=== PATIENT | female | born 1975 | race Two or more races ===

== ENCOUNTER 2017-07-14 13:43 | Inpatient (IN) | payer BC, OTHER ==
[2017-07-14 13:49] VITALS: BMI 20.1
--- NOTE | 2017-07-14 14:01 | PDOC ---
Rapid Medical Evaluation Chief Complaint: Vaginal Bleeding Time Seen by Provider: 07/14/17 13:56 Medical Evaluation: Allergies Allergy/AdvReac Type Severity Reaction Status Date / Time No Known Allergies Allergy Verified 07/14/17 13:45 Vital Signs Temp Pulse Resp BP Pulse Ox 98.5 F 104 H 18 117/71 100 07/14/17 13:45 07/14/17 13:45 07/14/17 13:45 07/14/17 13:45 07/14/17 13:45 07/14/17 14:07 I have performed a brief in-person evaluation of this patient. The patient presents with a chief complaint of: diarrhea, blood in stool Pertinent physical exam findings: stable I have ordered the following: cbc, cmp, coags, type and screen The patient will proceed to the ED for further evaluation. 07/14/17 14:35
[2017-07-14 14:15] LABS: MCH 29.2 pg (25.7-33.7); MEAN CELL VOLUME 91.1 fl (80-96); MEAN PLT VOLUME 7.9 fl (7.5-11.1); PLATELET COUNT 238 K/MM3 (134-434); RDW 13.9 % (11.6-15.6); WHITE BLOOD COUNT 17.8 K/mm3 (4.0-10.0)
[2017-07-14 14:36] LABS: ALBUMIN 3.9 g/dl (3.4-5.0); ANION GAP 10 (8-16); CALCIUM 8.7 mg/dL (8.5-10.1); CO2 25 mmol/L (21-32)
[2017-07-14 14:42] LABS: ALK PHOS 47 U/L (45-117); BILIRUBIN,TOTAL 0.7 mg/dL (0.2-1.0); CREATININE 0.8 mg/dL (0.55-1.02); GLUCOSE,RANDOM 106 mg/dL (74-106); SGOT/AST 17 U/L (15-37); SGPT/ALT 20 U/L (12-78); TOT PROT 7.1 g/dl (6.4-8.2)
[2017-07-14 14:45] LABS: INR 1.09 (0.82-1.09); PROTHROMBIN TIME (PATIENT) 12.3 SEC (9.98-11.88)
[2017-07-14 14:48] LABS: ACTIVATED PTT 29.6 SECONDS (26.9-34.4)
--- NOTE | 2017-07-14 15:32 | PDOC ---
History of Present Illness - General Chief Complaint: Vaginal Bleeding Stated Complaint: O.R PCP SENT FOR ADMIN d&c Time Seen by Provider: 07/14/17 13:56 - History of Present Illness Initial Comments: 07/14/17 15:47 Ms. Albrecht is a 42 yo female w/ pmh of prior left leg blood clot during and eczema who presents from provider. She says that she had a miscarriage on June 18 and started bleeding Jun.25. She has been bleeding more or less since. She presented to her provider today for evaluation and was sent here with D&C scheduled for 7pm. The patient denies chest pain, shortness of breath, headache and dizziness. Denies fever, chills, nausea, vomit, diarrhea and constipation. Denies dysuria, frequency, urgency and hematuria. Allergies: NKDA Past History - Past Medical History Allergies/Adverse Reactions: Allergies Allergy/AdvReac Type Severity Reaction Status Date / Time No Known Allergies Allergy Verified 07/14/17 13:45 COPD: No - Suicide/Smoking/Psychosocial Hx Smoking History: Never smoked Information on smoking cessation initiated: No Hx Alcohol Use: No Drug/Substance Use Hx: No Substance Use Type: None Review of Systems - Review of Systems Comments:: 07/14/17 15:51 GENERAL/CONSTITUTIONAL: +Generalized weakness HEAD, EYES, EARS, NOSE AND THROAT: No change in vision. No ear pain or discharge. No sore throat. CARDIOVASCULAR: No chest pain or shortness of breath RESPIRATORY: No cough, wheezing, or hemoptysis. GASTROINTESTINAL: No nausea, vomiting, diarrhea or constipation. GENITOURINARY: No dysuria, frequency, or change in urination. MUSCULOSKELETAL: No joint or muscle swelling or pain. No neck or back pain. SKIN: No rash NEUROLOGIC: No headache, vertigo, loss of consciousness, or change in strength/ sensation. ENDOCRINE: No increased thirst. No abnormal weight change HEMATOLOGIC/LYMPHATIC: No anemia, easy bleeding, or history of blood clots. ALLERGIC/IMMUNOLOGIC: No hives or skin allergy. : Vaginal bleeding reported *Physical Exam - Vital Signs Last Vital Signs Temp Pulse Resp BP Pulse Ox 98.5 F 104 H 18 117/71 100 07/14/17 13:45 07/14/17 13:45 07/14/17 13:45 07/14/17 13:45 07/14/17 13:45 - Physical Exam Comments: 07/14/17 15:52 GENERAL: Awake, alert, and fully oriented, in no acute distress HEAD: No signs of trauma, normocephalic, atraumatic EYES: PERRLA, EOMI, sclera anicteric, conjunctiva clear ENT: Auricles normal inspection, hearing grossly normal, nares patent, oropharynx clear without exudates. Moist mucosa NECK: Normal ROM, supple, no lymphadenopathy, JVD, or masses LUNGS: No distress, speaks full sentences, clear to auscultation bilaterally HEART: Regular rate and rhythm, normal S1 and S2, no murmurs, rubs or gallops, peripheral pulses normal and equal bilaterally. ABDOMEN: Soft, nontender, normoactive bowel sounds. No guarding, no rebound. No masses EXTREMITIES: Normal inspection, Normal range of motion, no edema. No clubbing or cyanosis. NEUROLOGICAL: Cranial nerves II through XII grossly intact. Normal speech, normal gait, no focal sensorimotor deficits SKIN: Warm, Dry, normal turgor, no rashes or lesions noted. ED Treatment Course - LABORATORY CBC & Chemistry Diagram: 07/14/17 14:04 07/14/17 14:04 - ADDITIONAL ORDERS Additional order review: Laboratory Results 07/14/17 07/14/17 07/14/17 14:04 14:04 14:04 PT with INR 12.30 H INR 1.09 PTT (Actin FS) 29.6 Sodium 140 Potassium 3.8 Chloride 105 Carbon Dioxide 25 Anion Gap 10 BUN 10 Creatinine 0.8 Creat Clearance w eGFR > 60 Random Glucose 106 Calcium 8.7 Total Bilirubin 0.7 AST 17 ALT 20 Alkaline Phosphatase 47 Total Protein 7.1 Albumin 3.9 Serum , Qual Positive 07/14/17 14:04 RBC 4.05 MCV 91.1 MCHC 32.0 RDW 13.9 MPV 7.9 Neutrophils % No Result Required. Lymphocytes % No Result Required. Medical Decision Making - Medical Decision Making 07/14/17 15:52 Patient discussed with admitting who will perform D&C tonight. Vaginal exam not done as not diagnostically necessary. Patient will be admitted for planned surgery and IV ABX started. *DC/Admit/Observation/Transfer Diagnosis at time of Disposition: Vaginal bleeding - Discharge Dispostion Admit: Yes - Referrals - Patient Instructions - Post Discharge Activity
[2017-07-14] MEDS ORDERED: cefTRIAXone 1 GM/50 ML BAG (PRE-DOCKED) IVPB ONE (15:33)
[2017-07-14] MEDS ORDERED: METRONIDAZOLE 500 MG PREMIXED 500 MG/100 ML MG IVPB ONE ×2 (15:33→16:08)
[2017-07-14] MEDS ORDERED: DOXYCYCLINE INJECTION 100 MG in DEXTROSE 5%-WATER - 100 ML IVPB ONE (15:38)
[2017-07-14] MEDS ORDERED: FAMOTIDINE 20 MG/50 ML IVPB 20 MG/50 ML MG IVPB ONE ×2 (15:54→16:08)
[2017-07-14] MEDS ORDERED: ONDANSETRON 4 MG/2 ML VIAL IVPUSH ONE (15:54)
[2017-07-14] MEDS ORDERED: SODIUM CHLORIDE 1,000 ML IV ONE (16:31)
--- NOTE | 2017-07-14 16:37 | PDOC ---
Attending Attestation - Resident Resident Name: Manoj Schultz - ED Attending Attestation I have performed the following: I have examined & evaluated the patient, The case was reviewed & discussed with the resident, I agree w/resident's findings & plan, Exceptions are as noted - Medical Decision Making 07/14/17 16:35 I, Dr. Alley Luke, DO, attest that this document has been prepared under my direction and personally reviewed by me in its entirety. I further attest, that it accurately reflects all work, treatment, procedures and medical decision -making performed by me. a/p: 42yo female sent by OB for preop labs for d/c tonight -preop labs, hcg, ivf hydration, zofran, pepcid, NPO. will be going to the OR with last chalker at 7pm <Alley Luke - Last Filed: 07/14/17 16:34> - HPI HPI: 07/14/17 16:39 Patient is a 42 year old female with PMHx of left leg blood clot during who presents to the ER for vaginal bleeding. She was sent to the ER and has a D&C scheduled for 7pm tonight. She has been NPO since last night. She complains of nausea and vomiting since 11am this morning. She is having lower abdominal pelvic cramps. - Physicial Exam PE: 07/14/17 16:38 GENERAL: Awake, alert, and fully oriented, in no acute distress HEAD: No signs of trauma EYES: PERRLA, EOMI, sclera anicteric, conjunctiva clear ENT: Auricles normal inspection, hearing grossly normal, nares patent, oropharynx clear without exudates. Moist mucosa NECK: Normal ROM, supple, no lymphadenopathy, JVD, or masses LUNGS: Breath sounds equal, clear to auscultation bilaterally. No wheezes, and no crackles HEART: Regular rate and rhythm, normal S1 and S2, no murmurs, rubs or gallops ABDOMEN: Mild tenderness in left pelvic area. Residual heartburn from vomiting today. Soft,, normoactive bowel sounds. No guarding, no rebound. No masses EXTREMITIES: No lower extremity edema. Normal range of motion, no edema. No clubbing or cyanosis. No cords, erythema, or tenderness NEUROLOGICAL: Cranial nerves II through XII grossly intact. Normal speech, normal gait SKIN: Warm, Dry, normal turgor, no rashes or lesions noted. <Christy Isbell - Last Filed: 07/14/17 16:40>
[2017-07-14 18:49] LABS: METAMYELOCYTE 2 % (0-2); TOTAL CELLS COUNTED 100
[2017-07-14 18:50] LABS: PLATELET ESTIMATE ADEQUATE; TOXIC GRANULATION 1+
[2017-07-14] MEDS ORDERED: PROPOFOL 20 ML ONE ×2 (22:22)
[2017-07-14] MEDS ORDERED: MIDAZOLAM HCL 2 MG/2 ML SINGLE DOSE VIAL ONE ×2 (22:23)
[2017-07-14] MEDS ORDERED: PROMETHAZINE HCL 25 MG/1 ML VIAL IVPUSH PRN (22:55)
[2017-07-14] MEDS ORDERED: ONDANSETRON 4 MG/2 ML VIAL IVPUSH PRN ×2 (22:55→23:02)
[2017-07-14] MEDS ORDERED: oxyCODONE HCL 5 MG TABLET PO PRN (22:55)
[2017-07-14] MEDS ORDERED: LACTATED RINGERS SOLUTION 1,000 ML IV SCH (23:00)
--- NOTE | 2017-07-14 23:01 | HP ---
Admitting History and Physical - Primary Care Physician PCP: Nisreen Nelson - Admission Chief Complaint: 42yo P2 with abdominal pain, foul smeling discharge, leveling HCG, post spontaneous Ab History of Present Illness: seen 06/18/17 9.5wks by dates, HCG 19,531, empty sack on US Since all signs of SAB, dropping HCG count 13,995(06/21), 8001 (06/26) she was observed She complained on 07/05 of foul odor and was given and took course of PO Flagyl without resolution of symptoms, HCG 84 (07/12) presented to the office today 07/14 with worsening of pain and foul smelling discharge History Source: Patient Limitations to Obtaining History: No Limitations - Past Medical History Cardiovascular: Yes: Deep Vein Thrombosis (2008 during first , states had negative w/up) Reproductive: Yes: Other (Ovarian cyst) ...LMP: 04/09/17 ...: Yes (s/p Incomplete Ab) - Past Surgical History Past Surgical History: Yes: Breast Biopsy Additional Past Surgical History: nevus removal - Smoking History Smoking history: Never smoked Have you smoked in the past 12 months: No - Alcohol/Substance Use Hx Alcohol Use: No Home Medications - Allergies Allergies/Adverse Reactions: Allergies Allergy/AdvReac Type Severity Reaction Status Date / Time No Known Allergies Allergy Verified 07/14/17 13:45 - Home Medications Home Medications: Ambulatory Orders NK [No Known Home Medication] 07/14/17 Family Disease History - Family Disease History Family Disease History: Other: Mother (DVT, PE) Review of Systems - Review of Systems Constitutional: reports: No Symptoms Eyes: reports: No Symptoms HENT: reports: No Symptoms Neck: reports: No Symptoms Cardiovascular: reports: No Symptoms Respiratory: reports: No Symptoms Gastrointestinal: reports: Abdominal Pain Genitourinary: reports: Vaginal Bleeding, Other (foul copious vaginal discharge , fundal tenderness) Physical Examination Vital Signs: Vital Signs Temperature 98.2 F 07/14/17 21:58 Pulse Rate 66 07/14/17 21:58 Respiratory Rate 17 07/14/17 21:58 Blood Pressure 118/82 07/14/17 21:58 O2 Sat by Pulse Oximetry (%) 100 07/14/17 21:58 Constitutional: Yes: Well Nourished HENT: Yes: WNL Neck: Yes: WNL Cardiovascular: Yes: WNL Respiratory: Yes: WNL Gastrointestinal: Yes: WNL, Tenderness, Other (low abdominal tenderness) Renal/: Yes: Vaginal Discharge (purulent, foul odor discharge), Other (CMT, Fundal tenderness) Musculoskeletal: Yes: WNL Extremities: Yes: WNL Integumentary: Yes: WNL Neurological: Yes: WNL ...Motor Strength: WNL Psychiatric: Yes: WNL Labs: CBC, BMP 07/14/17 14:04 07/14/17 14:04 Imaging - Results Ultrasound: Image Reviewed (1.2cm endometrial stripe, irregula c/w retained products) Assessment/Plan 42 yo P2 with Incomplete Septic Ab and Endometritis Admit for D&C NPO, IVF, Start triple antibiotics: Ceftriaxone, Flagyl, Doxycycline Consent signed, patient understands risks of infection bleeding, uterine perforation and scaring
[2017-07-14] MEDS ORDERED: IBUPROFEN 800 MG/8 ML IJ IVPB PRN (23:02)
[2017-07-14] MEDS ORDERED: IBUPROFEN 600 MG TABLET (FP) PO PRN (23:02)
--- NOTE | 2017-07-14 23:02 | OP ---
Operative Note - Note: Operative Date: 07/14/17 Pre-Operative Diagnosis: 42yo with Incomplete, infected Operation: Dialation and curettage Findings: Retained POC Post-Operative Diagnosis: Same as Pre-op Surgeon: Nisreen Nelson Anesthesiologist/SHAKER OPERATOR: Jacobo Mcnamraa Anesthesia: MAC Estimated Blood Loss (mls): 0 Drains, Volume Out (mls): 50 Fluid Volume Replaced (mls): 500 Operative Report Dictated: Yes
[2017-07-14] MEDS ORDERED: CEFTRIAXONE 1 GM in DEXTROSE 5%-WATER - 50 ML IVPB SCH (23:15)
[2017-07-14] MEDS ORDERED: ELECTROLYTE-148 SOLN 1,000 ML IV SCH (23:15)
[2017-07-15] MEDS: METRONIDAZOLE 500 MG PREMIXED 500 MG/100 ML MG IVPB SCH ×5 (00:09→20:51)
[2017-07-15] MEDS: ENOXAPARIN NA (PORCINE) 30 MG/0.3 ML DISP.SYRIN SQ SCH ×3 (00:17→22:08)
[2017-07-15] MEDS: CEFTRIAXONE 1 G/50 ML PREMIX 50 ML IVPB SCH ×2 (01:14→09:17)
[2017-07-15] MEDS: DOXYCYCLINE INJECTION 100 MG in DEXTROSE 5%-WATER - 100 ML IVPB SCH ×3 (02:08→22:06)
--- NOTE | 2017-07-15 08:22 | PN ---
Progress Note, Physician Chief Complaint: Feels better, no nausea, no vomiting, pain controlled History of Present Illness: s/p D&C 07/15/17 - Current Medication List Current Medications: Active Medications Enoxaparin Sodium (Lovenox -) 30 mg SQ BID [facility] Last Admin: 07/15/17 00:17 Dose: 30 mg Lactated Ringer's (Lactated Ringers Solution) 1,000 mls @ 75 mls/hr IV ASDIR NICOLE Parenteral Electrolytes (Plasma-Lyte 148 -) 1,000 mls @ 125 mls/hr IV ASDIR NICOLE Last Admin: 07/14/17 23:15 Dose: 0 mls Metronidazole (Flagyl 500mg Premixed Ivpb -) 500 mg in 100 mls @ 100 mls/hr IVPB Q6H-IV [facility] Stop: 07/15/17 23:14 Last Admin: 07/15/17 08:11 Dose: 100 mls/hr Doxycycline Hyclate 100 mg/ (Dextrose) 100 mls @ 50 mls/hr IVPB BID [facility] Stop: 07/15/17 23:14 Last Admin: 07/15/17 02:08 Dose: 50 mls/hr CEFTRIAXONE 1 G/50 ML PREMIX (Ceftriaxone 1 Gm-D5w Bag) 50 mls @ 100 mls/hr IVPB DAILY [facility] Stop: 07/15/17 23:14 Last Admin: 07/15/17 01:14 Dose: 100 mls/hr Ibuprofen (Motrin -) 600 mg PO Q6H PRN PRN Reason: FEVER Ibuprofen (Caldolor Injection -) 800 mg IVPB Q6H PRN PRN Reason: FEVER Ondansetron HCl (Zofran Injection) 4 mg IVPUSH Q6H PRN PRN Reason: NAUSEA AND/OR VOMITING Ondansetron HCl (Zofran Injection) 4 mg IVPUSH Q6H PRN PRN Reason: NAUSEA Oxycodone HCl (Roxicodone -) 10 mg PO Q4H PRN PRN Reason: SEVERE PAIN Stop: 07/15/17 22:54 Promethazine HCl (Phenergan Injection -) 12.5 mg IVPUSH Q6H PRN PRN Reason: NAUSEA-FOR RESCUE AFTER 15 MIN - Objective Vital Signs: Vital Signs Temperature 98 F 07/15/17 08:05 Pulse Rate 58 L 07/15/17 08:05 Respiratory Rate 20 07/15/17 08:05 Blood Pressure 94/40 07/15/17 08:05 O2 Sat by Pulse Oximetry (%) 98 07/14/17 23:05 Constitutional: Yes: Well Nourished Neck: Yes: WNL Cardiovascular: Yes: WNL Respiratory: Yes: WNL Gastrointestinal: Yes: WNL, Soft, Other (mild LLQ tenderness) Genitourinary: Yes: Vaginal Bleeding (minimal) Extremities: Yes: WNL (Venodyne stockings) Neurological: Yes: WNL ...Motor Strength: WNL Psychiatric: Yes: WNL Labs: CBC, BMP 07/14/17 14:04 INR, PTT INR 1.09 (0.82-1.09) 07/14/17 14:04 Assessment/Plan 42 yo P2 s/p D&C for Septic AB doing well WBC improving still some mild abdominal symptoms will observe for 24 more hr of IV Abx than will d/c home on PO
[2017-07-15 08:43] LABS: MCH 29.3 pg (25.7-33.7); MCHC 32.4 g/dl (32.0-36.0); MEAN CELL VOLUME 90.6 fl (80-96); MEAN PLT VOLUME 8.3 fl (7.5-11.1); PLATELET COUNT 228 K/MM3 (134-434); WHITE BLOOD COUNT 14.5 K/mm3 (4.0-10.0)
--- NOTE | 2017-07-16 00:33 | OP ---
DATE OF OPERATION: 07/14/2017 PREOPERATIVE DIAGNOSIS: A 22-year-old with incomplete effective . OPERATION: Dilation and curettage. FINDINGS: Retained product of conception. POSTOPERATIVE DIAGNOSIS: Retained product of conception. SURGEON: Nisreen Nelson MD ANESTHESIOLOGIST: Jacobo Mcnamara MD ANESTHESIA: MAC. ESTIMATED BLOOD LOSS: Zero mL. URINE OUTPUT: 50 mL. Patient received 500 mL of IV fluids. DESCRIPTION OF PROCEDURE: After assuring informed consent, the patient was brought to the operating room where she was placed in the dorsal lithotomy position. Perineum and vagina were prepped with betadine and draped in the sterile fashion. A blunt-sided speculum was placed in the vagina and the vagina was previously examined and the uterus was found to be 7 cm in size with closed cervix. The cervix was articulated with a single-toothed tenaculum and gradually dilated per dilators to accommodate a 7-gauge curette. Suction curettage was performed and products of conception were suctioned and visualized. Aspirated gentle curettage with number 2 curette was performed in all 4 quadrants. Uterus was found to be empty. Suction was performed one more time. All instruments were removed from the cervix and vagina. Sponge and instrument count was correct x2. Patient was brought to the recovery room in stable condition. Christopher [id number]
[2017-07-16] MEDS: METRONIDAZOLE 500 MG PREMIXED 500 MG/100 ML MG IVPB SCH ×3 (02:46→15:03)
[2017-07-16 08:26] LABS: BASOPHIL 0.4 % (0-2.0); EOSINOPHIL 1.1 % (0-4.5); MCH 29.7 pg (25.7-33.7); MCHC 32.1 g/dl (32.0-36.0); MEAN CELL VOLUME 92.3 fl (80-96); MEAN PLT VOLUME 8.2 fl (7.5-11.1); NEUTROPHILS 57.7 % (42.8-82.8); PLATELET COUNT 197 K/MM3 (134-434); RDW 14.1 % (11.6-15.6); WHITE BLOOD COUNT 8.3 K/mm3 (4.0-10.0)
[2017-07-16 09:17] VITALS: BP 99/62; PULSE 55; TEMP 98.2
[2017-07-16] MEDS: ENOXAPARIN NA (PORCINE) 30 MG/0.3 ML DISP.SYRIN SQ SCH (09:51)
[2017-07-16] MEDS ORDERED: CEFTRIAXONE 1 G/50 ML PREMIX 50 ML IVPB ONE (10:00)
[2017-07-16] MEDS ORDERED: DOXYCYCLINE INJECTION 100 MG in DEXTROSE 5%-WATER - 100 ML IVPB SCH (10:00)
--- NOTE | 2017-07-16 15:43 | DS ---
Physical Examination Vital Signs: Vital Signs Temperature 98.2 F 07/16/17 09:16 Pulse Rate 55 L 07/16/17 09:16 Respiratory Rate 20 07/16/17 09:16 Blood Pressure 99/62 07/16/17 09:16 O2 Sat by Pulse Oximetry (%) 98 07/14/17 23:05 Labs: CBC, BMP 07/16/17 07:45 07/14/17 14:04 Discharge Summary Reason For Visit: VAGINAL BLEEDING Current Active Problems Vaginal bleeding (Acute) - Instructions - Home Medications Comprehensive Discharge Medication List: Ambulatory Orders NK [No Known Home Medication] 07/14/17
--- NOTE | 2017-07-16 15:51 | PATH ---
Surgical Pathology Report Patient Name: PALAK REHMAN [facility] [place]. Rec. #: [id number] /Age/Gender: 1975 (Age: 42) / F Account: [id number] Location: [facility] OBS/ROLL OVER PRESS OPERATOR Taken: 07/14/2017 Received: 07/15/2017 Reported: 07/16/2017 Physicians: Nisreen Nelson M.D. Specimen(s) Received PRODUCTS OF CONCEPTION AND CURETTAGE Clinical History Preoperative diagnosis: Incomplete Postoperative diagnosis: Same Final Diagnosis UTERINE CONTENTS, CURETTINGS: DEGENERATED CHORIONIC VILLI CONSISTENT WITH PRODUCTS OF CONCEPTION, ALONG WITH DECIDUA AND WEAKLY PROLIFERATIVE ENDOMETRIUM. Electronically Signed Aime Wood M.D. Gross Description Received in formalin labeled "products of conception and curettage," is a 5.5 x 4.0 x 0.4 cm aggregate of lewis brown soft tissue fragments. No definite villous tissue or somatic tissue is identified. Electronics Supervisor sections are submitted in 3 cassettes. /07/15/[address] [facility]07/15/2017
== END 2017-07-16 17:00 | disposition home or self-care (01) | DRG 770 ==
LOC: JER 13:43 → JASUSAT 15:55 → J3W 22:59
PROVIDERS: ADMIT Obstetrics & Gynecology; ATTEND Obstetrics & Gynecology
PROC: 10D17ZZ Extraction of Products of Conception, Retained, Via Natural or Artificial Opening (ICD-10-PCS; principal; 2017-07-14 19:00)
DX: O03.37 Sepsis following incomplete spontaneous abortion (principal); A41.9 Sepsis, unspecified organism; Z3A.09 9 weeks gestation of pregnancy
CPT/HCPCS: 36415; 80053; 84702; 84703; 85025; 85027; 85610; 85730; 86850; 86900; 86901; 88305-TC; 94010; 94760; 99282-25

== ENCOUNTER 2021-11-09 19:10 | Emergency (ER) | payer BC, OTHER ==
[2021-11-09 19:15] VITALS: BP 151/84; PULSE 70; TEMP 97.8; BMI 20.1
[2021-11-09] MEDS ORDERED: IBUPROFEN 600 MG TABLET (FP) PO ONE ×2 (20:11→20:17)
[2021-11-09] MEDS ORDERED: METOCLOPRAMIDE HCL 10 MG TABLET (FP) PO ONE ×2 (20:11→20:17)
== END 2021-11-09 20:41 | disposition home or self-care (01) ==
LOC: JER 19:10 → JERFT 19:10
DX: S03.00XA Dislocation of jaw, unspecified side, initial encounter (principal); Y99.9 Unspecified external cause status
CPT/HCPCS: 99283-25

== ENCOUNTER 2022-08-20 04:20 | Day surgery (SDC) | payer BC, OTHER ==
[2022-08-12 14:32] VITALS: BMI 20.9
[2022-08-20] MEDS ORDERED: LIDOCAINE HCL/PF 2% SDV 5ML VIAL ONE (07:29)
[2022-08-20] MEDS ORDERED: PROPOFOL 20 ML ONE ×2 (07:29→07:31)
[2022-08-20] MEDS ORDERED: MIDAZOLAM HCL 2 MG/2 ML SINGLE DOSE VIAL ONE (07:29)
[2022-08-20] MEDS ORDERED: FENTANYL CITRATE/PF 50 MCG/ML VIAL ONE (07:29)
[2022-08-20] MEDS ORDERED: DEXAMETHASONE SOD PHOSPHATE 4 MG/1 ML VIAL ONE (07:30)
[2022-08-20] MEDS ORDERED: ONDANSETRON 4 MG/2 ML VIAL ONE (07:30)
[2022-08-20] MEDS ORDERED: ONDANSETRON 4 MG/2 ML VIAL IVPUSH PRN ×2 (07:37→07:43)
[2022-08-20] MEDS ORDERED: oxyCODONE HCL 5 MG TABLET PO PRN ×2 (07:37→07:43)
[2022-08-20] MEDS ORDERED: ACETAMINOPHEN 1000 MG/100 ML BAG IVPB ONE (07:38)
[2022-08-20] MEDS ORDERED: IBUPROFEN 800 MG/8 ML IJ IVPB PRN (07:43)
[2022-08-20] MEDS ORDERED: IBUPROFEN 600 MG TABLET (FP) PO PRN (07:43)
[2022-08-20] MEDS ORDERED: ELECTROLYTE-148 SOLN 1,000 ML IV SCH (07:45)
[2022-08-20] MEDS ORDERED: LACTATED RINGERS SOLUTION 1,000 ML IV SCH (07:45)
[2022-08-20] MEDS ORDERED: KETOROLAC TROMETHAMINE 30 MG/1 ML VIAL ONE (08:28)
[2022-08-20] MEDS ORDERED: ACETAMINOPHEN INJECTION 100 ML IVPB ONE (08:49)
[2022-08-20 09:14] VITALS: RESP 16
[2022-08-20 10:56] VITALS: TEMP 97.3
[2022-08-20 12:22] VITALS: BP 117/57; PULSE 55
== END 2022-08-20 12:28 | disposition home or self-care (01) ==
LOC: JASU-SURG 04:20
PROVIDERS: ATTEND Obstetrics & Gynecology
PROC: 0UDB7ZX Extraction of Endometrium, Via Natural or Artificial Opening, Diagnostic (ICD-10-PCS; 2022-08-20)
PROC: 0UB98ZX Excision of Uterus, Via Natural or Artificial Opening Endoscopic, Diagnostic (ICD-10-PCS; principal; 2022-08-20 07:30)
DX: N92.0 Excessive and frequent menstruation with regular cycle (principal); N84.0 Polyp of corpus uteri; D25.9 Leiomyoma of uterus, unspecified
CPT/HCPCS: 81025; 88305-TC; 94760